=== PATIENT | female | born 1975 ===

== ENCOUNTER 2023-12-22 05:45 | Day surgery (SDC) | payer OTHER ==
[~2023-12-22 05:45] MED LIST: CARVEDILOL3.125 MG; VASOFLEX
[2023-12-22] MEDS ORDERED: CEFAZOLIN SODIUM 1,000 MG VIAL ONE ×2 (08:11→09:57)
[2023-12-22] MEDS ORDERED: MORPHINE SULFATE 4 MG/ML VIAL IV ONE ×2 (10:35→11:25)
== END 2023-12-22 13:05 | disposition home or self-care (01) ==
LOC: CIR.AMB 05:45
PROVIDERS: ATTEND Surgery
DX: K42.0 Umbilical hernia with obstruction, without gangrene (principal); I10 Essential (primary) hypertension; J45.909 Unspecified asthma, uncomplicated; Z88.6 Allergy status to analgesic agent
CPT/HCPCS: 49594; C1781